=== PATIENT | female | born 1975 | race Caucasian/White ===

== ENCOUNTER 2018-04-27 23:59 | Emergency (ER) | payer OTHER ==
[~2018-04-27] VITALS: Ht 160 cm; Wt 90.7 kg
[2018-04-28] MEDS ORDERED: NEURONTIN 300300 M1 PO (00:23)
[2018-04-28] MEDS ORDERED: EFFEXOR XR75 MG PO (00:23)
[2018-04-28] MEDS ORDERED: SEROQUEL 25 MG25 M1 PO (00:24)
[2018-04-28] MEDS ORDERED: XANAX1 MG PO (00:24)
[2018-04-28] MEDS ORDERED: ADDERALL 30 MG30 MG PO (00:25)
[2018-04-28] MEDS ORDERED: PRAZOSIN 1 MG CA1 M1 PO (00:25)
[2018-04-28] MEDS ORDERED: BACTRIM DS TAB1 EACH PO (01:37)
[2018-04-28] MEDS ORDERED: INDOMETHACIN 2525 MG PO (01:37)
[2018-04-28 01:59] VITALS: BP 120/78
== END 2018-04-28 01:50 | disposition home or self-care (01) ==
LOC: M.ERS 23:59
DX: M79.671 Pain in right foot (principal); M79.672 Pain in left foot; R22.43 Localized swelling, mass and lump, lower limb, bilateral